=== PATIENT | male | born 1950 | race Caucasian/White ===

== ENCOUNTER → 2017-12-13 | Outpatient (CLI) | payer MEDICARE | END | disposition home or self-care (01) | LOC: LABPAT 10:32 | PROVIDERS: ATTEND Orthopaedic Surgery Orthopaedic Surgery of the Spine | DX: Z53.9 Procedure and treatment not carried out, unspecified reason (principal) | CPT/HCPCS: 86850; 86900; 86901 ==

== ENCOUNTER → 2017-12-17 | Outpatient (CLI) | payer MEDICARE ==
[2017-12-17 15:22] LABS: Basophils % (A) 0 %; Eosinophils # (A) 0.1 k/uL (0-0.7); Eosinophils % (A) 1 %; HCT 36.1 % (39.0-53.0); HGB 12.2 gm/dL (13.0-17.5); Lymphocytes # (A) 1.4 k/uL (1.0-4.8); Lymphocytes % (A) 29 %; MCH 31.3 pg (25.0-35.0); MCHC 33.7 g/dL (31.0-37.0); MCV 92.8 fL (80.0-100.0); Mean Platelet Volume 6.4; Monocytes # (A) 0.4 k/uL (0-1.0); Monocytes % (A) 7 %; Neutrophils # (A) 2.9 k/uL (1.3-7.7); Neutrophils % (A) 60 %; Platelet Count 322 k/uL (150-450); RBC 3.89 m/uL (4.30-5.90); RDW 13.8 % (11.5-15.5); WBC 4.9 k/uL (3.8-10.6)
[2017-12-17 15:27] LABS: Appearance,Urine Clear (Clear); Bilirubin,Urine Negative (Negative); Blood,Urine Negative (Negative); Color,Urine Yellow; Glucose,Urine (UA) Negative (Negative); Hyaline Casts,Urine 35 /lpf (0-2); Ketones,Urine Negative (Negative); Leukocyte Esterase,Urine Negative (Negative); Mucus,Urine Rare /hpf; Nitrite,Urine Negative (Negative); Protein,Urine 1+ (Negative); RBC,Urine <1 /hpf (0-5); Specific Gravity,Urine 1.015 (1.001-1.035); WBC,Urine 1 /hpf (0-5)
[2017-12-17 15:32] LABS: INR 1.1 (<1.2); Partial Thromboplastin Time 23.8 sec (22.0-30.0); Prothrombin Time 10.7 sec (9.0-12.0)
[2017-12-17 15:40] LABS: Calcium 9.7 mg/dL (8.4-10.2)
== END | disposition home or self-care (01) ==
LOC: LABPAT 11:13
PROVIDERS: ATTEND Orthopaedic Surgery Orthopaedic Surgery of the Spine
DX: Z01.812 Encounter for preprocedural laboratory examination (principal); M48.061 Spinal stenosis, lumbar region without neurogenic claudication
CPT/HCPCS: 36415; 80048; 81001; 85025; 85610; 85730; 87070

== ENCOUNTER 2017-12-25 07:30 | Inpatient (IN) | payer MEDICARE ==
[2017-12-18 16:10] VITALS: BMI 40.3
[~2017-12-25 07:30] MED LIST: ALPRAZolam 0.5 MG TAB PO PRN; BACITRACIN 50,000 UNIT, POLYMYXIN B 500,000 UNIT in SODIUM CHLORIDE 0.9% IRRIGATIO 1,00... IRRIGATION ONE; DEXAMETHASONE SOD PHOSPHATE 10 MG/ML 1 ML VIAL IV ONE; LIDOCAINE 1% 20 ML VIAL (10MG/ML) FOR IV START INTRADERMA PRN; ONDANSETRON 4 MG/2 ML VIAL IVP ONE; SCOPOLAMINE 1.5MG/72HR PATCH TRANSDERM ONE; ceFAZolin IN SWFI 2 GM/20 ML SYRINGE IVP ONE
[2017-12-25] MEDS: LACTATED RINGERS 1,000 ML IV SCH (13:07)
[2017-12-25 13:20] LABS: Glucose,Whole Blood 97 mg/dL (75-99)
[2017-12-25] MEDS ORDERED: PROPOFOL 10 MG/ML 20 ML VIAL IV ONE (14:49)
[2017-12-25] MEDS ORDERED: SUCCINYLCHOLINE CHLORIDE 100 MG/5 ML SYR IV ONE (14:49)
[2017-12-25] MEDS ORDERED: fentaNYL (PF) 50 MCG/ML 2 ML AMP ONE (14:49)
[2017-12-25] MEDS ORDERED: ePHEDrine SULFATE/0.9% NACL/PF 50 MG/5 ML SYRINGE IV ONE (14:49)
[2017-12-25] MEDS ORDERED: THROMBIN (BOVINE) 5,000 UNIT VIAL TOPICAL ONE (14:49)
[2017-12-25] MEDS ORDERED: LIDOCAINE 1% INJ 10MG/ML (20 ML MDV) ONE (14:49)
[2017-12-25] MEDS ORDERED: MIDAZOLAM 2 MG/2 ML VIAL ONE (14:49)
[2017-12-25] MEDS ORDERED: GELATIN SPONGE,ABSORB (LARGE) 1 EACH SPONGE TOPICAL ONE (14:49)
[2017-12-25] MEDS ORDERED: LIDOCAINE 0.5%-EPI 1:200,000 50 ML VIAL SQ ONE (14:49)
[2017-12-25] MEDS ORDERED: LACTATED RINGERS 1,000 ML IV ONE (16:28)
[2017-12-25] MEDS ORDERED: HYDROcodone/APAP 5-325MG 1 EACH TAB PO PRN (17:32)
[2017-12-25] MEDS ORDERED: BENZOCAINE/MENTHOL LOZENG 1 EACH LOZENGE MUCOUS MEM PRN (17:32)
[2017-12-25] MEDS ORDERED: MAGNESIUM HYDROXIDE 2,400 MG/10 ML CUP PO PRN (17:32)
[2017-12-25] MEDS ORDERED: ONDANSETRON 4 MG/2 ML VIAL IVP PRN (17:32)
[2017-12-25] MEDS ORDERED: HYDROmorphone 1 MG/ML 1 ML SYRINGE IVP PRN ×2 (17:32)
--- NOTE | 2017-12-25 17:41 | P.OP ---
Date of Procedure: 12/25/17 Preoperative Diagnosis: Spondylolisthesis L5-S1, degenerative disc disease L5-S1, spinal stenosis L5-S1 , herniated pulposus L5-S1, lower extremity radiculopathy Postoperative Diagnosis: Spondylolisthesis L5-S1, degenerative disc disease L5-S1, spinal stenosis L5-S1 , herniated pulposus L5-S1, lower extremity radiculopathy Anesthesia: GETA Pathology: none sent Condition: stable Disposition: PACU Description of Procedure: DESCRIPTION OF PROCEDURE(S): BRIEF OPERATIVE NOTE Preoperative Diagnosis: Spondylolisthesis L5-S1, degenerative disc disease L5-S1 , spinal stenosis L5-S1, herniated pulposus L5-S1, lower extremity radiculopathy Postoperative Diagnosis:Spondylolisthesis L5-S1, degenerative disc disease L5-S1 , spinal stenosis L5-S1, herniated pulposus L5-S1, lower extremity radiculopathy Procedure: Laminectomy and decompression L5-S1 Minimally invasive Posterior lateral decompression and facet fusion L5-S1 Minimally invasive Transforaminal lumbar interbody fusion for a 360 fusion L5-S1 Discectomy for decompression L5-S1 Placement of interbody graft L5-S1 Local autogenous bone grafting Harvesting of bone marrow aspirate tibia the pedicle and vertebral body of L5 Use of Cell Saver Use of bone graft extenders Surgeon: Dr. Santiago Flag Signaler: Manuel Jones is present throughout the entire the case persistence during positioning, dissection, exposure, visualization, and all crucial elements of the case as well as closure. Anesthesia: General anesthesia Estimated blood loss: Approximately 75 mL Complications: None apparent Components implanted: K2M minimally invasive a wrist pedicle screw system with 6.5 mm screws 2 rods measuring 35 mm 1 interbody Aleutian peek cage measuring 6 mm by22mm Disposition: To recovery room in good stable condition. OPERATIVE INDICATIONS The patient has had long-standing issues in their lower back and lower extremities. His found have a grade 2 spondylolisthesis at L5-S1 and disc herniation with spinal stenosis at L5-S1. These findings were related with well with his low back pain and lower extremity symptoms of lower radiculopathy and some weakness on the left. He is having worsening pain despite aggressive conservative care. The patient has been through conservative treatment. We discussed various treatment options including surgery, and the patient wishes to proceed with surgery We discussed the risk, patient's alternatives and benefits of surgery including but not limited to, risk of bleeding risk of infection, risk of need for further surgery, risk of decreased, loss of motion, muscle function, malunion nonunion, hardware failure, nerve damage, paralysis, heart attack, blindness and . OPERATIVE SUMMARY After discussing all the risks, patient alternatives and benefits at length, the patient elected to proceed with surgical intervention, signed informed consent, and presented for their procedure. The patient was seen and examined in the preoperative holding area and the surgical site was marked. The patient was given antibiotics and brought to the operating room. The patient was sedated and intubated by anesthesia in standard fashion. The patient was positioned on to the operating room table in a prone position on the appropriate frame which was well-padded and well molded. We were careful to pad any bony prominences and pressure points. We were careful to maintain the patient's cervical spine and good neutral alignment and position throughout. The patient was prepped and draped in a normal standard fashion. An appropriate timeout and keystone protocol performed. We were able to proceed with the surgery. The local wound area was infiltrated with local anesthetic. I was able utilize C-arm guidance to establish appropriate position over the pedicles bilaterally at the appropriate levels at L5-S1 at L5-S1. With the appropriate levels confirmed was able to make small stab incisions over the appropriate pedicle sites bilaterally. Utilizing C-arm in his house able to establish a Jamshidi needle over the lateral aspect of the pedicle and advanced the trocar into the pedicle being careful not to breech superiorly inferiorly medially or laterally. Position was confirmed regularly with AP and lateral images on C-arm. I was able to establish the trocar into the pedicle appropriately into the posterior aspect of the vertebral body bilaterally at the appropriate levels. This was done at each of the pedicle positions and each of the vertebrae. I was able to take a bone marrow aspirate approximately 20 mL from the trocar of the pedicle at L5 which was used later in the case for autograft. I was able place the guidewire into the trocar and into the vertebral body appropriately under C-arm guidance. Dissection was taken down over the wire to the appropriate starting position for the screw placed. The appropriate length screw was chosen, threaded over the guidewire and screwed appropriately into the pedicle and vertebral body under C-arm guidance in excellent alignment and position with good bony purchase. This is done at each of the screw sites at the appropriate levels at L5-S1. With the screws intact I extended the incision to connect the screw hole sites on the most symptomatic side on the left of L5-S1 of L5-S1. I dissected down to establish access over the pars and lamina to the base of the spinous process. I was able to expose the facet joint. The capsule the facet was taken down and showed some facet arthrosis at the joint. I was able to use a combination of curettes and Kerrison rongeurs and a high-speed drill to take down the facet joint and do a facetectomy. Partial laminectomy was also performed. There is significant bony overgrowth at the facet joint that I was able to remove his harvest for local autogenous bone graft. I was able get excellent foraminal decompression and central decompression with undermining across midline to perform a laminectomy centrally and contralaterally. As able get good central decompression. The ligamentum flavum was taken down to further decompress centrally and at bilateral neural foramen. I was able to expose the disc space and visualize the traversing nerve root. Note was made of some disc protrusion at the level causing further compression of the nerve root. I was able to establish a annulotomy at the appropriate level protecting soft tissue and neural structures. Note was made of some disc desiccation at the disc. I performed a complete discectomy with accommodation of curettes and rasps and scrapers. I was able get good endplate preparation at the disc space. I sized for the appropriate size interbody spacer protecting the soft tissue and neural structures. The wound was copiously irrigated and suctioned dry. There is no evidence of any dural tear or leak. I was able to pack the disc space with local autogenous bone graft as well as a small amount of bone graft which was also placed into the interbody cage itself. Protecting the soft tissue structures and neural structures I was able place the interbody cage in good alignment and good position with good fit and fill at the interbody space. His issues was confirmed with C-arm guidance. Good hemostasis maintained. There is no evidence of any dural tear or leak. The wound was irrigated and suctioned dry. With the hardware intact, intraoperative C-arm imaging was again taken which showed good alignment and position of the hardware at the appropriate levels. We were then able to measure, contour and place the rods and appropriate hardware bilaterally. I was able to place capcrews, tighten them down, and torque them with the torque screwdriver appropriately. With this intact I was able to place the local autogenous bone graft with additional bone graft enhancer as necessary into the posterior lateral gutters over the decorticated transverse processes and decorticated facet joint. The remainder of the bone graft was placed over the facet joint on the contralateral side after taking down the facet joint capsule. With the bone graft intact, a stable construct, and good decompression at the appropriate levels, we were able to proceed with closure. Good hemostasis was maintained. There is no evidence of dural tear or leak. The fascia was closed for a watertight closure. he subcuticular tissue was closed with absorbable suture. The wound was cleaned and dried and dressed with the appropriate dressing. The drapes were broken down. The patient was gently rolled back onto their hospital bed being careful to maintain their cervical spine and good neutral alignment and position. They were woken up by anesthesia, extubated, and brought to the recovery room in good stable condition. The patient will be admitted to the hospital for appropriate postoperative care , medical management and monitoring. We will continue to follow them closely about the postoperative course.
--- NOTE | 2017-12-25 17:59 | XR ---
EXAMINATION TYPE: XR lumbar spine 2 or 3V DATE OF EXAM: 12/25/2017 COMPARISON: NONE HISTORY: Fusion surgery TECHNIQUE: 4 views FINDINGS: 4 fluoroscopic images were obtained in the operating room that show placement of posterior rods and screws fusing the lumbar spine posteriorly at L5-S1. There is a second-degree L5-S1 spondylo listhesis. IMPRESSION: Fusion surgery. No complicating process seen.
[2017-12-25] MEDS: HYDROmorphone 0.5 MG/0.5 ML SYRINGE IVP PRN ×2 (18:00→18:15)
[2017-12-25 18:20] LABS: Glucose,Whole Blood 128 mg/dL (75-99)
[2017-12-25 19:28] LABS: Glucose,Whole Blood 141 mg/dL (75-99)
[2017-12-25] MEDS: SODIUM CHLORIDE 0.9% 1,000 ML IV SCH ×2 (20:40→21:20)
[2017-12-25] MEDS: PRAVASTATIN SODIUM 40 MG TAB PO SCH (20:54)
[2017-12-25] MEDS: FENOFIBRATE 160 MG TAB PO SCH (20:54)
[2017-12-25] MEDS: INSULIN ASPART 100 UNIT/ML 1 ML 10 ML VIAL SQ SCH (20:59)
[2017-12-25] MEDS ORDERED: NON-FORMULARY DRUG (Omega-3 Fatty Acids/Fish Oil [Fish Oil 1,000 Mg Softgel] 1 EACH) PO SCH (21:00)
[2017-12-25] MEDS: VERAPAMIL SR 120 MG TABLET.ER PO SCH (21:02)
[2017-12-25] MEDS: PIOGLITAZONE 30 MG TAB PO SCH (21:02)
[2017-12-25] MEDS: HYDROcodone/APAP 5-325MG 1 EACH TAB PO PRN (22:44)
[2017-12-25] MEDS: ceFAZolin IN SWFI 2 GM/20 ML SYRINGE IVP SCH (22:51)
[2017-12-26] MEDS: LACTATED RINGERS 1,000 ML IV SCH ×2 (04:23→22:06)
[2017-12-26 06:07] LABS: Glucose,Whole Blood 126 mg/dL (75-99)
[2017-12-26] MEDS: HYDROcodone/APAP 5-325MG 1 EACH TAB PO PRN ×4 (06:27→20:47)
--- NOTE | 2017-12-26 07:33 | FL ---
Fluoroscopy History: MIN INVASIVE LUM FUSION L5-S1 1 min 17 sec fl
[2017-12-26] MEDS: INSULIN ASPART 100 UNIT/ML 1 ML 10 ML VIAL SQ SCH ×4 (08:00→20:14)
[2017-12-26] MEDS: SODIUM CHLORIDE 0.9% 1,000 ML IV SCH ×2 (08:01→22:05)
[2017-12-26 08:08] LABS: Basophils % (A) 1 %; Eosinophils # (A) 0.1 k/uL (0-0.7); Eosinophils % (A) 1 %; HCT 34.1 % (39.0-53.0); HGB 11.2 gm/dL (13.0-17.5); Lymphocytes # (A) 0.8 k/uL (1.0-4.8); Lymphocytes % (A) 16 %; MCH 31.1 pg (25.0-35.0); MCV 94.2 fL (80.0-100.0); Mean Platelet Volume 6.4; Monocytes # (A) 0.4 k/uL (0-1.0); Monocytes % (A) 9 %; Neutrophils # (A) 3.4 k/uL (1.3-7.7); Neutrophils % (A) 72 %; Platelet Count 247 k/uL (150-450); RBC 3.62 m/uL (4.30-5.90); RDW 14.2 % (11.5-15.5); WBC 4.7 k/uL (3.8-10.6)
[2017-12-26 08:17] LABS: Calcium 9.4 mg/dL (8.4-10.2); Potassium 3.7 mmol/L (3.5-5.1)
[2017-12-26] MEDS: LOSARTAN-HCTZ 50-12.5 MG 1 EACH TAB PO SCH (08:32)
[2017-12-26] MEDS: CARVEDILOL 6.25 MG TAB PO SCH ×2 (08:32→16:43)
[2017-12-26] MEDS: ASPIRIN 81 MG PO SCH (08:32)
[2017-12-26] MEDS: VERAPAMIL SR 120 MG TABLET.ER PO SCH ×2 (08:32→20:14)
[2017-12-26] MEDS: MULTIVITAMINS, THERA 1 EACH TAB PO SCH (08:32)
[2017-12-26] MEDS: ceFAZolin IN SWFI 2 GM/20 ML SYRINGE IVP SCH (08:33)
[2017-12-26] MEDS: CHOLECALCIFEROL 1,000 UNIT TAB PO SCH (08:34)
--- NOTE | 2017-12-26 09:31 | P.PN ---
Progress Note - Text Progress Note Date: 12/26/17 Postoperative day #1 Patient is seen and examined today at bedside. The patient has some pain around the surgical site as expected. Pain is being controlled with medication. He has been up to the bathroom already on his own. He is voiding freely. Physical Exam Afebrile with stable vital signs Abdomen is soft nontender. Chest has good excursion deep and space expiration The incision site is clean dry and intact. No erythema there is no purulence. There is some spotting on the left incision but it is not having any active drainage Extremities have not had neurologic change from prior to surgery. He has sustained dorsal flexion plantar flexion and EHL intact at his bilateral lower extremities. Calves and thighs were soft nontender without evidence of DVT. Assessment/Plan Postoperative day #1 status post minimally invasive decompression and fusion L5- S1 for his spondylolisthesis with spinal stenosis low back pain and lower extremity radiculopathy Patient is progressing as expected from the surgery. He feels his legs are doing well and his back pain is controlled with medications from the surgery. We will continue to increase the patient's mobilization with therapy. We will continue pain control with oral or IV medications. He feels he'll likely be able to be discharged home tomorrow on Saturday. We'll continue to follow patient closely.
[2017-12-26 11:37] LABS: Glucose,Whole Blood 135 mg/dL (75-99)
[2017-12-26 17:13] LABS: Glucose,Whole Blood 144 mg/dL (75-99)
[2017-12-26 18:55] LABS: Hemoglobin A1C 6.6 % (4.0-6.0)
[2017-12-26 20:03] VITALS: RESP 16
[2017-12-26 20:09] LABS: Glucose,Whole Blood 261 mg/dL (75-99)
--- NOTE | 2017-12-26 20:12 | CONS ---
CONSULTATION This is a white male, status post lumbar disc disease surgery. He is having no chest pain or shortness of breath. He is up ambulating to the bathroom today. Home medications were reordered for hypertension and dyslipidemia. The patient's home medications have been reordered. REVIEW OF SYSTEMS: Fourteen point review of systems negative except for mentioned in HPI. Medications include Actos, Pravachol, Isoptin, Coreg, , aspirin. Endocrine is BMI is over 40. Temp 97.7, 94 on room air. Blood pressure 144/79, respiratory 18 - 20. CARDIOVASCULAR: S1, S2. LUNGS: Clear. GI: Soft. HEMATOLOGY: Negative Homans. Integument is clear, dry, intact. The patient is improving from medical standpoint. Possibly will be discharged when cleared by orthopedic surgeon. MMODL / IJN: [id number] /
[2017-12-26] MEDS: PIOGLITAZONE 30 MG TAB PO SCH (20:14)
[2017-12-26] MEDS: FENOFIBRATE 160 MG TAB PO SCH (20:14)
[2017-12-26] MEDS: PRAVASTATIN SODIUM 40 MG TAB PO SCH (20:14)
[2017-12-27] MEDS: HYDROcodone/APAP 5-325MG 1 EACH TAB PO PRN ×2 (06:38→12:48)
[2017-12-27 07:19] LABS: Glucose,Whole Blood 155 mg/dL (75-99)
[2017-12-27] MEDS: CARVEDILOL 6.25 MG TAB PO SCH (07:31)
[2017-12-27] MEDS: INSULIN ASPART 100 UNIT/ML 1 ML 10 ML VIAL SQ SCH ×2 (07:31→12:45)
[2017-12-27] MEDS: MULTIVITAMINS, THERA 1 EACH TAB PO SCH (07:31)
[2017-12-27] MEDS: ASPIRIN 81 MG PO SCH (07:31)
[2017-12-27] MEDS: LOSARTAN-HCTZ 50-12.5 MG 1 EACH TAB PO SCH (07:31)
[2017-12-27] MEDS: CHOLECALCIFEROL 1,000 UNIT TAB PO SCH (07:32)
[2017-12-27] MEDS: SODIUM CHLORIDE 0.9% 1,000 ML IV SCH (07:32)
[2017-12-27 08:24] VITALS: TEMP 98.4
--- NOTE | 2017-12-27 08:54 | P.DS ---
Providers Date of admission: 12/25/17 11:47 Expected date of discharge: 12/27/17 Attending physician: Talat Santiago Consults: 12/25/17 17:32 Consult Physician Routine Consulting Provider: Leander Salas Consult Reason/Comments: Medical management Do you want consulting provider notified?: Yes Primary care physician: Stated None - Discharge Diagnosis(es) (1) Lumbosacral spinal stenosis Current Visit: Yes Status: Acute (2) Spondylolisthesis, lumbosacral region Current Visit: Yes Status: Acute (3) Herniated nucleus pulposus of lumbosacral region Current Visit: Yes Status: Acute (4) Disc disease, degenerative, lumbar or lumbosacral Current Visit: Yes Status: Acute (5) Lumbar back pain with radiculopathy affecting lower extremity Current Visit: Yes Status: Acute (6) Hypertension Current Visit: Yes Status: Acute (7) Hyperlipidemia Current Visit: Yes Status: Acute Hospital Course: This is a pleasant 67-year-old male who presented with L5-S1 spondylolisthesis, degenerative disc disease, herniated nucleus pulposus, and spinal canal stenosis with lower extremity radiculopathy who failed outpatient conservative therapy. He was admitted for an L5-S1 minimally invasive posterior lateral decompression and fusion with transforaminal lumbar interbody fusion. The patient tolerated the procedure well and did well postoperatively. He has been able to ambulate to the restroom without significant difficulty. He feels his back pain has been adequately controlled. He is not requiring IV pain medication for pain control. Feels he is ready for discharge. He is happy with his progress postoperatively. Condition on day of discharge stable. Patient will be discharged home. Patient was cleared preoperatively for surgery by Dr. Leander Salas. Patient currently denies any nausea, vomiting, fever, or chills. Patient is eating and voiding freely without difficulty. Patient may shower Tegaderm dressing intact. Patient may remove Tegaderm dressing in 3 days and shower without a dressing at that time. Patient should keep Steri-Strips intact and allow them to fall off naturally. Patient should refrain from driving until at least after their first follow-up appointment in the office. Patient should avoid excessive bending, lifting, and twisting; no lifting greater than 10 pounds. Patient has a medical history that includes hypertension and hyperlipidemia. MAPS has been reviewed today, 12/27/2017, with an Overall Overdose Risk Score of 190. An "Opiod Start Talking" Forn has been signed by the patient and myself in place in the patient's chart. A prescription has been written for [place] 5 mg/325 mg 1-2 tabs every 6 hours as needed for pain, dispense #56. Patient should avoid anti-inflammatories over the next 6 weeks postoperatively. Physical Exam on day of discharge: Patient is awake, alert, and oriented 3 Vital signs stable Good chest excursion with deep inspiration and expiration Abdomen soft nontender No signs or symptoms of DVT; no calf pain Extensor hallucis longus, plantarflexion, and dorsiflexion positive sustained bilateral lower extremities Lower extremity strength 5/5 throughout range of motion Active range of motion bilateral lower extremities without difficulty Incision is clean, dry, and intact; no erythema, purulence, or signs of infection Tegaderm dressing and non-stick Telfa intact Procedures: L5-S1 and Minimally invasive posterior lateral decompression and fusion with transforaminal lumbar interbody fusion Patient Condition at Discharge: Stable Plan - Discharge Summary Discharge Rx Participant: Yes New Discharge Prescriptions: New Hydrocodone/Acetaminophen [[place] 5-325] 1 - 2 each PO Q6HR PRN #56 tab PRN Reason: Pain No Action Verapamil Sr [Isoptin Sr] 120 mg PO BID Multivit-Min/FA/Lycopen/Lutein [Centrum Silver Men Tablet] 1 tab PO DAILY Fenofibric Acid (Choline) [Trilipix] 135 mg PO HS Cholecalciferol [Vitamin D3] 1,000 unit PO DAILY Aspirin 81 mg PO DAILY Pravastatin Sodium [Pravachol] 40 mg PO HS Pioglitazone HCl [Actos] 30 mg PO HS Carvedilol [Coreg] 6.25 mg PO BID Losartan/Hydrochlorothiazide [Losartan-Hctz 100-25 mg Tab] 1 tab PO QAM [place]-3 Fatty Acids/Fish Oil [Fish Oil 1,000 mg Softgel] 1 cap PO BID Discharge Medication List Aspirin 81 mg PO DAILY 12/18/17 [History] Carvedilol [Coreg] 6.25 mg PO BID 12/18/17 [History] Cholecalciferol [Vitamin D3] 1,000 unit PO DAILY 12/18/17 [History] Fenofibric Acid (Choline) [Trilipix] 135 mg PO HS 12/18/17 [History] Losartan/Hydrochlorothiazide [Losartan-Hctz 100-25 mg Tab] 1 tab PO QAM [History] Multivit-Min/FA/Lycopen/Lutein [Centrum Silver Men Tablet] 1 tab PO DAILY [History] [place]-3 Fatty Acids/Fish Oil [Fish Oil 1,000 mg Softgel] 1 cap PO BID 12/18/17 [ History] Pioglitazone HCl [Actos] 30 mg PO HS 12/18/17 [History] Pravastatin Sodium [Pravachol] 40 mg PO HS 12/18/17 [History] Verapamil Sr [Isoptin Sr] 120 mg PO BID 12/18/17 [History] Hydrocodone/Acetaminophen [[place] 5-325] 1 - 2 each PO Q6HR PRN #56 tab 12/27/17 [Rx] Follow up Appointment(s)/Referral(s): [facility], [NON-STAFF] - As Needed Manuel Aguirre, SCOTT [PHYSICIAN IP TECHNOLOGY TRANSACTIONS ATTORNEY] - 2 Weeks (Patient may follow-up with Manuel Aguirre PA-C or Dr. Daryn Santiago at [facility] in 2-3 weeks following discharge. ) Patient Instructions/Handouts: *Surgery [facility] - (Jack) Lumbar Surgery Discharge Instructions Activity/Diet/Wound Care/Special Instructions: 1. Patient may shower with Tegaderm dressing intact. 2. Patient may remove Tegaderm dressing in 3 days and shower without a dressing at that time. 3. Patient should keep Steri-Strips intact and allow them to fall off naturally. 4. Patient should refrain from driving until at least after their first follow- up appointment in the office. 5. Patient should avoid excessive bending, twisting, and lifting; no lifting greater than 10 pounds 6. Take medications as prescribed 7. Do not soak in tub Discharge Disposition: HOME SELF-CARE
[2017-12-27 10:17] VITALS: BP 109/66; PULSE 54
[2017-12-27] MEDS: VERAPAMIL SR 120 MG TABLET.ER PO SCH (10:17)
[2017-12-27 11:55] LABS: Glucose,Whole Blood 98 mg/dL (75-99)
--- NOTE | 2017-12-27 13:45 | CDI ---
Last Revision, January 2017 Documentation Clarification Form Date: 12/27/2017 1:16:24 PM From: Ioana Feng RN, CCDS Admit Date: 12/25/2017 11:47:00 AM Patient Name: Darío Nguyen Visit Number: [id number] Discharge Date: ATTENTION: The Clinical Documentation Specialists (CDI) and [facility] Coding Staff appreciate your assistance in clarifying documentation. Please respond to the clarification below the line at the bottom and electronically sign. The CDI & [facility] Coding staff will review the response and follow-up if needed. Please note: Queries are made part of the Legal Health Record. If you have any questions, please contact the author of this message via ITS. Talat Dc, DO Patient has been described in H/P of having a BMI that is measured above average for populous. History/Risk Factors: Herniated nucleus pulposus of lumbosacral region, Hypertension, Hyperlipidemia, Diabetes mellitus Clinical Indicators: Presented with L5-S1 spondylolisthesis, degenerative disc disease. and spinal stenosis He continues to have ongoing low back pain that is worse with twisting and bending activities. The patient does not exercise. He presented for elective spinal fusion. Patients weight is 260 Patients height is 5 ft 6 in Calculated BMI is 41.96 Current BMI 40.4 Skin care/assessment: There are no rashes, ulcerations or lesions in the regions examined. Treatments: Daily weights Education on Regular activity and exercise are discussed Lifestyle education In order to capture the severity of condition associated with patient BMI of 40.4 a clinical diagnoses needs to be documented by the physician. Please clarify: Obese Morbidly obese Other, please specify Unable to determine Please continue to document in your progress notes and discharge summary in order to capture severity of illness and risk of mortality. Include clinical findings that support your diagnosis. The patient has BMI of 40.4 and has significant obesity with. This certainly as to his risk factors in terms of chronic disease and, occasions in regards to his spinal fusion. We discussed this prior to surgery he understands. MANINDER
== END 2017-12-27 13:30 | disposition home or self-care (01) | DRG 454 ==
LOC: 2ORMAIN 11:47 → 4SSUR 17:34
PROVIDERS: ADMIT Orthopaedic Surgery Orthopaedic Surgery of the Spine; ATTEND Orthopaedic Surgery Orthopaedic Surgery of the Spine
PROC: 0ST40ZZ Resection of Lumbosacral Disc, Open Approach (ICD-10-PCS; principal; 2017-12-25 13:45)
PROC: 30233H0 Transfusion of Autologous Whole Blood into Peripheral Vein, Percutaneous Approach (ICD-10-PCS; principal; 2017-12-25 13:45)
PROC: 0SG3071 Fusion of Lumbosacral Joint with Autologous Tissue Substitute, Posterior Approach, Posterior Column, Open Approach (ICD-10-PCS; principal; 2017-12-25 13:45)
PROC: 0SG30AJ Fusion of Lumbosacral Joint with Interbody Fusion Device, Posterior Approach, Anterior Column, Open Approach (ICD-10-PCS; principal; 2017-12-25 13:45)
DX: M51.17 Intervertebral disc disorders with radiculopathy, lumbosacral region (principal); Z68.41 Body mass index [BMI] 40.0-44.9, adult; M48.07 Spinal stenosis, lumbosacral region; M43.17 Spondylolisthesis, lumbosacral region; E78.5 Hyperlipidemia, unspecified; I10 Essential (primary) hypertension; Z79.84 Long term (current) use of oral hypoglycemic drugs; Z79.82 Long term (current) use of aspirin; Z79.899 Other long term (current) drug therapy; Z83.3 Family history of diabetes mellitus; Z82.49 Family history of ischemic heart disease and other diseases of the circulatory system; E66.9 Obesity, unspecified; G47.33 Obstructive sleep apnea (adult) (pediatric); E11.9 Type 2 diabetes mellitus without complications; Z99.89 Dependence on other enabling machines and devices
CPT/HCPCS: 72100; 80048; 83036; 85025; 86850; 86900; 86901

== ENCOUNTER → 2019-01-05 | Outpatient (CLI) | payer MEDICARE ==
[2019-01-05 09:37] LABS: Basophils % (A) 1 %; Eosinophils # (A) 0.1 k/uL (0-0.7); Eosinophils % (A) 2 %; HCT 39.6 % (39.0-53.0); HGB 12.8 gm/dL (13.0-17.5); Lymphocytes % (A) 23 %; MCH 30.9 pg (25.0-35.0); MCHC 32.4 g/dL (31.0-37.0); MCV 95.4 fL (80.0-100.0); Mean Platelet Volume 6.6; Monocytes # (A) 0.3 k/uL (0-1.0); Monocytes % (A) 7 %; Neutrophils # (A) 2.7 k/uL (1.3-7.7); Neutrophils % (A) 65 %; Platelet Count 311 k/uL (150-450); RBC 4.15 m/uL (4.30-5.90); RDW 13.6 % (11.5-15.5); WBC 4.2 k/uL (3.8-10.6)
[2019-01-05 09:49] LABS: Prothrombin Time 10.3 sec (9.0-12.0)
--- NOTE | 2019-01-05 09:57 | XR ---
EXAMINATION TYPE: XR chest 2V DATE OF EXAM: 01/05/2019 COMPARISON: None INDICATION: Presurgical clearance TECHNIQUE: Frontal and lateral views of the chest are obtained. FINDINGS: The heart size is normal. The pulmonary vasculature is normal. The lungs are clear. IMPRESSION: 1. No acute pulmonary process.
[2019-01-05 09:59] LABS: Calcium 9.3 mg/dL (8.4-10.2); Potassium 4.6 mmol/L (3.5-5.1)
[2019-01-05 10:04] LABS: Appearance,Urine Clear (Clear); Bilirubin,Urine Negative (Negative); Blood,Urine Negative (Negative); Color,Urine Light Yellow; Glucose,Urine (UA) Negative (Negative); Ketones,Urine Negative (Negative); Leukocyte Esterase,Urine Negative (Negative); Nitrite,Urine Negative (Negative); PH, Urine 7.5 (5.0-8.0); Protein,Urine Negative (Negative); Specific Gravity,Urine 1.007 (1.001-1.035); Urobilinogen,Urine <2.0 mg/dL (<2.0)
== END | disposition home or self-care (01) ==
LOC: LABPAT 09:02
PROVIDERS: ATTEND Orthopaedic Surgery Orthopaedic Surgery of the Spine
DX: Z01.818 Encounter for other preprocedural examination (principal); Z01.812 Encounter for preprocedural laboratory examination; M48.02 Spinal stenosis, cervical region; Z51.81 Encounter for therapeutic drug level monitoring; Z79.01 Long term (current) use of anticoagulants
CPT/HCPCS: 36415; 71046; 80048; 81003; 85025; 85610; 85730; 86850; 86900; 86901; 93005

== ENCOUNTER 2019-01-14 08:51 | Day surgery (SDC) | payer MEDICARE ==
[2019-01-07 12:41] VITALS: BMI 42.7
[~2019-01-14 08:51] MED LIST changes: -ALPRAZolam 0.5 MG TAB PO PRN; +HYDROmorphone 0.5 MG/0.5 ML SYRINGE IVP PRN; +MIDAZOLAM 2 MG/2 ML VIAL IV PRN; +ceFAZolin 3 GM in SODIUM CHLORIDE 0.9% 100 ML IVPB ONE; -ceFAZolin IN SWFI 2 GM/20 ML SYRINGE IVP ONE
[2019-01-14 09:31] LABS: Glucose,Whole Blood 120 mg/dL (75-99)
[2019-01-14] MEDS: LACTATED RINGERS 1,000 ML IV SCH ×2 (09:32→23:23)
[2019-01-14] MEDS ORDERED: KETAMINE 10 MG/ML 20 ML VIAL ONE (10:07)
[2019-01-14] MEDS ORDERED: GLYCOPYRROLATE 0.2 MG/ML 2 ML VIAL ONE (10:07)
[2019-01-14] MEDS ORDERED: MIDAZOLAM 2 MG/2 ML VIAL ONE (10:07)
[2019-01-14] MEDS ORDERED: SUCCINYLCHOLINE CHLORIDE VIAL 200 MG/10 ML VIAL IV ONE (10:07)
[2019-01-14] MEDS ORDERED: ROCURONIUM BROMIDE 10 MG/ML 10 ML VIAL IV ONE (10:07)
[2019-01-14] MEDS ORDERED: fentaNYL (PF) 50 MCG/ML 2 ML AMP ONE (10:07)
[2019-01-14] MEDS ORDERED: DEXAMETHASONE SOD PHOS (MDV) 100 MG/10 ML VIAL ONE (10:07)
[2019-01-14] MEDS ORDERED: PROPOFOL 10 MG/ML 20 ML VIAL IV ONE (10:07)
[2019-01-14] MEDS ORDERED: LIDOCAINE 1% INJ 10MG/ML (20 ML MDV) ONE (10:07)
[2019-01-14] MEDS ORDERED: HYDROmorphone (PF) 1 MG/ML ONE (10:07)
[2019-01-14] MEDS ORDERED: NEOSTIGMINE 1 MG/ML 10 ML VIAL ONE (10:07)
[2019-01-14] MEDS ORDERED: ACETAMINOPHEN IV (For NPO) 1,000 MG/100 ML VIAL ONE (10:07)
[2019-01-14] MEDS ORDERED: LIDOCAINE 0.5%-EPI 1:200,000 50 ML VIAL SQ ONE ×3 (10:39→10:48)
[2019-01-14] MEDS ORDERED: GELATIN SPONGE,ABSORB (LARGE) 1 EACH SPONGE TOPICAL ONE ×2 (10:40→10:48)
[2019-01-14] MEDS ORDERED: THROMBIN (BOVINE) 5,000 UNIT VIAL TOPICAL ONE ×2 (10:40→10:48)
[2019-01-14] MEDS ORDERED: LACTATED RINGERS 1,000 ML IV ONE (10:51)
--- NOTE | 2019-01-14 12:02 | XR ---
EXAMINATION TYPE: XR cervical spine 1V DATE OF EXAM: 01/14/2019 COMPARISON: NONE HISTORY: Needle placement. Localization. TECHNIQUE: Intraoperative single crosstable lateral view of the cervical spine for needle placement. FINDINGS: Needle localization of the C3-C4 intervertebral disc level from an anterior approach is see n. Degenerative disc disease the cervical spine is partially visualized. Patient is noted to be intub ated. Vertebral body heights are maintained. IMPRESSION: Needle localization at the C3-C4 intervertebral disc level.
[2019-01-14] MEDS ORDERED: MAGNESIUM HYDROXIDE 2,400 MG/10 ML CUP PO PRN (13:04)
[2019-01-14] MEDS ORDERED: HYDROmorphone 0.5 MG/0.5 ML SYRINGE IVP PRN (13:04)
[2019-01-14] MEDS ORDERED: HYDROcodone/APAP 5-325MG 1 EACH TAB PO PRN (13:04)
[2019-01-14] MEDS ORDERED: HYDROmorphone 1 MG/ML 1 ML SYRINGE IVP PRN (13:04)
[2019-01-14] MEDS ORDERED: ONDANSETRON 4 MG/2 ML VIAL IVP PRN (13:04)
[2019-01-14] MEDS ORDERED: BENZOCAINE/MENTHOL LOZENG 1 EACH LOZENGE MUCOUS MEM PRN (13:04)
[2019-01-14] MEDS ORDERED: ACETAMINOPHEN TAB 325 MG TAB PO PRN (13:04)
--- NOTE | 2019-01-14 13:08 | XR ---
EXAMINATION TYPE: XR cervical spine 1V DATE OF EXAM: 01/14/2019 COMPARISON: NONE HISTORY: Localization. TECHNIQUE: Intraoperative single crosstable lateral view of the cervical spine FINDINGS IMPRESSION: Anterior cervical fusion device bridges the C3, C4, C5, and C6 levels. Patient r emains intubated and this intraoperative image. Alignment is maintained.
--- NOTE | 2019-01-14 13:14 | P.OP ---
Date of Procedure: 01/14/19 Preoperative Diagnosis: Cervical myelopathy, cervical myelomalacia, severe cervical stenosis C3 4 C4 5 C5 6, herniated nucleus pulposis C3 4 C4 5 C5 6, degenerative disc disease, upper extremity weakness, upper extremity radiculopathy, neck pain Postoperative Diagnosis: Same Anesthesia: GETA Pathology: none sent Condition: stable Disposition: PACU Description of Procedure: BRIEF OPERATIVE NOTE Preoperative Diagnosis:Cervical myelopathy, cervical myelomalacia, severe cervical stenosis C3 4 C4 5 C5 6, herniated nucleus pulposis C3 4 C4 5 C5 6, degenerative disc disease, upper extremity weakness, upper extremity radiculopathy, neck pain Postoperative Diagnosis:Cervical myelopathy, cervical myelomalacia, severe cervical stenosis C3 4 C4 5 C5 6, herniated nucleus pulposis C3 4 C4 5 C5 6, degenerative disc disease, upper extremity weakness, upper extremity radiculopathy, neck pain Procedure: Anterior cervical decompression with discectomy and fusion C3 4 C4 5 C5 6 Placement of interbody graft C3 4 C4 5 C5 6 Application of anterior cervical plate C3 4 5 and 6 Surgeon: Dr. Santiago Material Yard Clerk: Colleen EMERY who is present throughout the entire the case persistence during positioning, dissection, exposure, visualization, and all crucial elements of the case as well as closure. Anesthesia: General anesthesia Estimated blood loss: Approximately 30 mL Complications: None apparent Components implanted: K2M [place] anterior cervical plate system with 14 mm screws and Vikos interbody allograft bone graft and 1 mL of DBX bone putty Disposition: To recovery room in good stable condition. OPERATIVE INDICATIONS The patient has had long-standing issues in their neck and upper extremities. He has been experiencing worsening of his upper extremity with her symptoms and noticing weakness in his upper extremity. He has been having some troubles his gait and was still demonstrates some signs of early myelopathy. He was having troubles with his fine motor skills and is upper extremity particularly to the left side. He was found have severe stenosis with disc herniation most severe at C3 4 with further stenosis C4 5 and C5 6 and evidence of myelomalacia at C3 4. The patient has been through conservative treatment. He is having worsening despite conservative measures. We discussed various treatment options including surgery, and the patient wishes to proceed with surgery We discussed the risk, patient's alternatives and benefits of surgery including but not limited to, risk of bleeding risk of infection, risk of need for further surgery, risk of decreased, loss of motion, muscle function, malunion nonunion, hardware failure, nerve damage, paralysis, heart attack, and . OPERATIVE SUMMARY After discussing all the risks, patient alternatives and benefits at length, the patient elected to proceed with surgical intervention, signed informed consent, and presented for their procedure. The patient was seen and examined in the preoperative holding area and the surgical site was marked. The patient was given antibiotics and brought to the operating room. The patient was positioned on the operating room table in a supine position being careful to pad any bony prominences and pressure points. The patient was sedated and intubated by anesthesia in standard fashion. Once the airway and C- spine were stabilized the patient's arms were padded and tucked at her side, with her shoulders gently taped. The head was placed in a donut pad with the neck in good neutral alignment and position. We were careful to maintain the patient's cervical spine and good neutral alignment and position throughout. The patient was prepped and draped in a normal standard fashion. An appropriate timeout and keystone protocol performed. We were able to proceed with the surgery. The local wound area was infiltrated with local anesthetic. An incision was made transversely approximately 2-1/2 cm over the appropriate levels at C4. Dissection was taken down subcutaneously to the level of the platysma which was split in line with its fibers. Dissection was taken with a carotid approach, with the trachea and esophagus medial and the carotid sheath laterally. We dissected down to the anterior surface of the vertebral bodies. Intraoperative x-ray was taken which showed a marker at the appropriate level at C3 4. With the appropriate level positively confirmed, we were able to proceed with discectomy at the appropriate levels. All of the operative levels were exposed appropriately. The patient had all their twitches back, and there was no evidence of recurrent laryngeal issue. The wound was copiously irrigated and suctioned dry as had been done periodically throughout the case. At the appropriate level/levels, starting at C5 6 and then removing the C4 5 and then moving the C3 4, I established an annulotomy with an 11 blade scalpel. A discectomy was performed with a combination of pituitary rongeurs, curettes, a high-speed bur, and Kerrison rongeurs. The posterior longitudinal ligament was taken down as were any posterior osteophytes. This gave good central and bilat eral foraminal decompression. There is no evidence of any dural tear or leak. There are large anterior cervical osteophytes which were removed. There is not evidence of severe central and bilateral foraminal stenosis which was remedied with the decompression. The endplates were prepared with a high-speed bur. With the endplates in good parallel position, I was able to size for the appropriate size interbody graft. The wound was irrigated and suctioned dry the graft was prepared and malleted into position. It had good alignment and position with the anterior surface flush with the anterior surface of the vertebral bodies. This was done similarly the appropriate levels first at C56 and then at C4 5 than at C3 4. With the grafts intact, I was able to measure and contour and appropriate sized plate. The plate was positioned at the midline over the appropriate levels at C3 4 5 and 6. Screw holes were established with a hand drill and drill guide. Screws were placed in good alignment and position with excellent bony purchase. They were seated under the locking device. The construct was checked and found to be stable. Intraoperative x-ray was taken which showed good alignment and position of the implants at the appropriate levels. There was no evidence of any dural tear or leak. Good hemostasis was maintained. The wound was copiously irrigated and suctioned dry as had been done periodically throughout the case. The platysma was closed with absorbable suture. The subcutaneous tissue was closed. The subcuticular tissue was closed with absorbable suture. The wound was cleaned and dried and dressed appropriately. A soft cervical collar was placed appropriately. The patient was woken up by anesthesia, extubated, transferred back gently to their hospital bed and brought to the recovery room in good stable condition. The patient will be admitted to the hospital for appropriate postoperative care, medical management and monitoring. We will continue to follow them closely about the postoperative course.
[2019-01-14] MEDS ORDERED: SODIUM CHLORIDE 0.9% 1,000 ML IV ONE (13:58)
[2019-01-14] MEDS: SODIUM CHLORIDE 0.9% 1,000 ML IV SCH ×2 (15:42→23:22)
[2019-01-14] MEDS: ceFAZolin 3 GM in SODIUM CHLORIDE 0.9% 100 ML IVPB SCH ×2 (17:28→23:16)
[2019-01-14] MEDS ORDERED: PRAVASTATIN SODIUM 40 MG TAB PO SCH (21:00)
[2019-01-14] MEDS ORDERED: CARVEDILOL 12.5 MG TAB PO SCH (21:00)
[2019-01-14] MEDS ORDERED: NON FORMULARY DRUG (Omega-3 Fatty Acids/Fish Oil [Fish Oil 1,000 Mg Softgel] 1 CAP) PO SCH (21:00)
[2019-01-14] MEDS ORDERED: FENOFIBRATE 160 MG TAB PO SCH (21:00)
[2019-01-14] MEDS ORDERED: PIOGLITAZONE 30 MG TAB PO SCH (21:00)
[2019-01-14] MEDS: VERAPAMIL SR 120 MG TABLET.ER PO SCH (21:30)
[2019-01-15 03:49] VITALS: RESP 16
[2019-01-15 07:08] VITALS: BP 132/60; PULSE 71; TEMP 98.2
[2019-01-15] MEDS: VERAPAMIL SR 120 MG TABLET.ER PO SCH (07:56)
[2019-01-15] MEDS ORDERED: ASPIRIN 81 MG PO SCH (09:00)
[2019-01-15] MEDS ORDERED: LOSARTAN-HCTZ 50-12.5 MG 1 EACH TAB PO SCH (09:00)
[2019-01-15] MEDS ORDERED: CHOLECALCIFEROL 1,000 UNIT TAB PO SCH (09:00)
[2019-01-15] MEDS ORDERED: MULTIVITAMINS, THERA 1 EACH TAB PO SCH (09:00)
--- NOTE | 2019-01-15 09:18 | P.DS ---
Providers Date of admission: 01/14/19 Attending physician: Talat Santiago Primary care physician: Stated None Hospital Course: The patient presented on the day of admission as per their operative note. He has significant cervical stenosis with disc herniation and upper extremity radiculopathy with evidence of myelopathy. An oh his anterior cervical decompression with discectomy and fusion as per his operative note. He feels he is making good progress today. Physical Exam The incision site is clean dry and intact. There is no erythema no drainage. There is no purulence no evidence of infection. His neck is soft and supple. There is no active drainage. There is no significant swelling. Abdomen soft and nontender. Chest has good excursion with deep inspiration and expiration. The patient has active and passive range of motion intact at the upper and lower extremities. There is no acute change in neurologic status. Hospital Course Postoperative day #1 status post anterior cervical decompression with discectomy and fusion see 34 C4 5 C5 6 for his cervical myelopathy with severe stenosis and upper extremity radiculopathy weakness. The patient has been making good progress postoperatively. They have completed the prophylactic antibiotics without any signs or symptoms of infection. The patient has been able to advance their diet, and is tolerating diet adequately. The pain was initially controlled with IV medications and is now controlled appropriately with oral medications. The patient has been able to increase their mobilization. The patient has progressed appropriately. I think they are in good stable condition for discharge today. They will be sent home with appropriate prescriptions. I answered their questions to the best of my ability in a language that they can understand and they are agreeable with the plan. They will follow up as directed. Patient Condition at Discharge: Good Plan - Discharge Summary Discharge Rx Participant: Yes New Discharge Prescriptions: New HYDROcodone/APAP 5-325MG [[place] 5] 1 each PO Q4HR PRN #42 tab PRN Reason: Pain No Action Verapamil Sr [Isoptin Sr] 120 mg PO BID Multivit-Min/FA/Lycopen/Lutein [Centrum Silver Men Tablet] 1 tab PO DAILY Fenofibric Acid (Choline) [Trilipix] 135 mg PO HS Cholecalciferol [Vitamin D3] 1,000 unit PO DAILY Aspirin 81 mg PO DAILY Pravastatin Sodium [Pravachol] 40 mg PO HS Pioglitazone HCl [Actos] 30 mg PO HS Carvedilol [Coreg] 12.5 mg PO HS Losartan/Hydrochlorothiazide [Losartan-Hctz 100-25 mg Tab] 1 tab PO QAM Dewy Rose-3 Fatty Acids/Fish Oil [Fish Oil 1,000 mg Softgel] 1 cap PO BID Ibuprofen [Motrin] 800 mg PO Q8H PRN PRN Reason: Pain Discharge Medication List Aspirin 81 mg PO DAILY 12/18/17 [History] Carvedilol [Coreg] 12.5 mg PO HS 12/18/17 [History] Cholecalciferol [Vitamin D3] 1,000 unit PO DAILY 12/18/17 [History] Fenofibric Acid (Choline) [Trilipix] 135 mg PO HS 12/18/17 [History] Losartan/Hydrochlorothiazide [Losartan-Hctz 100-25 mg Tab] 1 tab PO QAM 12/18/17 [History] Multivit-Min/FA/Lycopen/Lutein [Centrum Silver Men Tablet] 1 tab PO DAILY 12/18/17 [History] Dewy Rose-3 Fatty Acids/Fish Oil [Fish Oil 1,000 mg Softgel] 1 cap PO BID 12/18/17 [History] Pioglitazone HCl [Actos] 30 mg PO HS 12/18/17 [History] Pravastatin Sodium [Pravachol] 40 mg PO HS 12/18/17 [History] Verapamil Sr [Isoptin Sr] 120 mg PO BID 12/18/17 [History] Ibuprofen [Motrin] 800 mg PO Q8H PRN 01/07/19 [History] HYDROcodone/APAP 5-325MG [[place] 5] 1 each PO Q4HR PRN #42 tab 01/14/19 [Rx] Follow up Appointment(s)/Referral(s): Talat Santiago DO [Doctor of Osteopathic Medicine] - 01/27/19 3:30 pm (With Richard) Yuli Parra PAC [Family Provider] - 1 Week Patient Instructions/Handouts: *Surgery [facility] - (Jack) Cervical Surgery Discharge Instructions Activity/Diet/Wound Care/Special Instructions: Keep site clean. May shower with waterproof Tegaderm intact. Do not soak in a tub. After 72 hours postoperatively, patient May remove dressing and then may shower with area uncovered. Leave Steri-Strips intact and allow them to fray off on their own. May ambulate as tolerated. Avoid heavy or rigorous activity. No repetitive bending twisting or lifting. No overhead work.
== END 2019-01-15 10:52 | disposition home or self-care (01) ==
LOC: OR 08:51 → 4SSUR 13:49 → OR 01-15 10:52
PROVIDERS: ATTEND Orthopaedic Surgery Orthopaedic Surgery of the Spine
DX: M50.022 Cervical disc disorder at C5-C6 level with myelopathy (principal); G95.89 Other specified diseases of spinal cord; M48.02 Spinal stenosis, cervical region; M50.123 Cervical disc disorder at C6-C7 level with radiculopathy; M50.122 Cervical disc disorder at C5-C6 level with radiculopathy; I10 Essential (primary) hypertension; E78.5 Hyperlipidemia, unspecified; E11.9 Type 2 diabetes mellitus without complications; Z96.653 Presence of artificial knee joint, bilateral; Z96.612 Presence of left artificial shoulder joint; Z90.49 Acquired absence of other specified parts of digestive tract; Z83.3 Family history of diabetes mellitus; Z98.1 Arthrodesis status; Z79.1 Long term (current) use of non-steroidal anti-inflammatories (NSAID); Z79.82 Long term (current) use of aspirin; Z79.84 Long term (current) use of oral hypoglycemic drugs; Z79.899 Other long term (current) drug therapy
CPT/HCPCS: 86900; 86901; 86850; 72020; 22551; 22552 ×2; 22845; 20931; C1713 ×2; C1762 ×2; J0690; J2405